=== PATIENT | male | born 1975 | race Hispanic/Latino ===

== ENCOUNTER 2023-11-29 08:22 | Emergency (ER) | payer SELFPAY ==
[~2023-11-29] VITALS: Ht 165.1 cm; Wt 84.8 kg
[2023-11-29] MEDS: 0.9%NACL 1000ML 1,000 ML IV ONE (08:49)
[2023-11-29] MEDS: [UNRECOGNIZED DRUG - OTHER] IV ONE (08:49)
[2023-11-29 09:00] LABS: SARS-CoV-2, RNA, NAAT NEGATIVE SARS CoV-2 (NEGATIVE)
[2023-11-29 09:01] LABS: BASOPHILS # (AUTO) 0.06 K/uL (0.00-0.20); BASOPHILS % (AUTO) 0.6 % (0.0-5.0); EOSINOPHILS # (AUTO) 0.24 K/uL (0.00-0.70); EOSINOPHILS % (AUTO) 2.3 % (0.0-8.0); HEMATOCRIT 45.8 % (42-54); IMMATURE GRANULOCYTE ABSOLUTE 0.03 K/uL (0-1); LYMPHOCYTES % (AUTO) 9.2 % (21.0-51.0); MEAN CORPUSCULAR HEMOGLOBIN 29.3 pg (27.0-33.0); MEAN CORPUSCULAR HGB CONC 33.2 g/dL (32.0-36.0); MEAN CORPUSCULAR VOLUME 88.2 fL (79-99); MONOCYTES # (AUTO) 0.7 K/uL (0.1-1.0); MONOCYTES % (AUTO) 6.2 % (3.0-13.0); NEUTROPHILS # (AUTO) 8.5 K/uL (1.8-7.7); NEUTROPHILS % (AUTO) 81.4 % (40.0-77.0); PLATELET COUNT (AUTO) 250 K/uL (130-400); RED BLOOD CELL COUNT(AUTO) 5.19 MIL/uL (4.50-6.20); RED CELL DISTRIBUTION WIDTH 13.4 % (11.0-15.5); WHITE BLOOD COUNT (AUTO) 10.5 K/uL (4.8-10.8)
[2023-11-29] MEDS: acetaMINOPHEN 500 MG TABLET PO ONE (09:02)
[2023-11-29 09:04] LABS: CREATININE 0.7 mg/dL (0.5-1.3); POTASSIUM 3.9 mmol/L (3.5-5.1)
[2023-11-29 09:12] LABS: ALBUMIN 4.1 g/dL (3.5-5.0); BILIRUBIN,TOTAL 0.5 mg/dL (0.2-1.0); TOTAL PROTEIN, SERUM 7.8 g/dL (6.0-8.3)
[2023-11-29 09:16] LABS: INFLUENZA TYPE A NEGATIVE FOR TYPE A (NEGATIVE); INFLUENZA TYPE B NEGATIVE FOR TYPE B (NEGATIVE)
[2023-11-29 10:02] VITALS: TEMP 99
[2023-11-29] MEDS: cefTRIAXone 1G VIAL IVPB ONE (11:08)
[2023-11-29] MEDS: AZITHROMYCIN 500MG+NS 250ML 250 ML IVPB SCH (11:08)
[2023-11-29] MEDS ORDERED: AZIT250T9 PO (11:52)
[2023-11-29] MEDS ORDERED: GUAI200T5 PO (11:52)
[2023-11-29] MEDS ORDERED: BENZ-39 PO (11:52)
[2023-11-29] MEDS ORDERED: ACET-66 PO (11:52)
[2023-11-29 13:04] VITALS: BP 154/83; PULSE 85; RESP 20; O2SAT 94
== END 2023-11-29 13:28 | disposition home or self-care (01) ==
LOC: EDH 08:22
DX: B34.9 Viral infection, unspecified (principal); J18.9 Pneumonia, unspecified organism; R65.10 Systemic inflammatory response syndrome (SIRS) of non-infectious origin without acute organ dysfunction; I10 Essential (primary) hypertension; Z20.822 Contact with and (suspected) exposure to COVID-19; Z79.899 Other long term (current) drug therapy; Z98.890 Other specified postprocedural states
CPT/HCPCS: 99284; 96365; 71045; 87635; 96361; 96375; 82550; 84484; 80053; 85025; 87040; 87086; 87804 ×2; 83605; 36415; J7030 ×2; J0696; J0456